=== PATIENT | female | born 1995 | race Caucasian/White ===

== ENCOUNTER 2023-10-20 08:00 | Outpatient (CLI) | payer OTHER ==
[2023-10-20 18:03] LABS: BILIRUBIN,URINE NEGATIVE (NEGATIVE); GLUCOSE, URINE (UA) NEGATIVE (NEGATIVE); KETONES,URINE (UA) NEGATIVE (NEGATIVE); LEUKOCYTE ESTERASE, URINE SMALL (NEGATIVE); NITRITE,URINE NEGATIVE (NEGATIVE); OCCULT BLOOD,URINE NEGATIVE (NEGATIVE); PROTEIN,URINE NEGATIVE (NEGATIVE); UROBILINOGEN,URINE 0.2 (NORMAL) E.U./dL (NORMAL)
[2023-10-20 18:09] LABS: CLARITY,URINE HAZY (CLEAR)
[2023-10-20 18:17] LABS: BACTERIA,URINE Moderate /HPF (None Seen); RBC,URINE 0-5 /HPF (0-5); SQUAMOUS EPITHELIAL CELL,UR MANY Squamous (<= Few)
== END 2023-10-20 23:59 | disposition home or self-care (01) ==
LOC: LAB.WC 08:00
PROVIDERS: ATTEND Nurse Practitioner
DX: Z34.00 Encounter for supervision of normal first pregnancy, unspecified trimester (principal)
CPT/HCPCS: 81001; 87086

== ENCOUNTER 2023-11-03 09:32 | Outpatient (CLI) | payer OTHER ==
[2023-11-03 09:51] LABS: BASOPHILS % (AUTO) 0.5 %; EOSINOPHILS # (AUTO) 0.1 10^3/uL (0.0-0.7); EOSINOPHILS % (AUTO) 1.4 %; HCT - HEMATOCRIT 39.1 % (37.0-47.0); HGB - HEMOGLOBIN 12.8 g/dL (12.0-16.0); LYMPHOCYTES # (AUTO) 1.7 10^3/uL (1.5-3.5); LYMPHOCYTES % (AUTO) 27.1 %; MEAN CORPUSCULAR HEMOGLOBIN 27.3 pg (27.0-31.0); MEAN CORPUSCULAR HGB CONC 32.7 g/dL (32.0-36.0); MEAN CORPUSCULAR VOLUME 83.4 fL (81.0-99.0); MEAN PLATELET VOLUME 9.5 fL (7.9-10.8); MONOCYTES # (AUTO) 0.4 10^3/uL (0.0-1.0); MONOCYTES % (AUTO) 5.8 %; NEUTROPHILS # (AUTO) 4.1 10^3/uL (1.5-6.6); NEUTROPHILS % (AUTO) 65.2 %; PLT - PLATELET COUNT 356 10^3/uL (130-450); RED BLOOD COUNT 4.69 10^6/uL (4.20-5.40); RED CELL DISTRIBUTION WIDTH 13.4 % (12.0-15.0); WHITE BLOOD COUNT 6.2 x10^3/uL (4.8-10.8)
[2023-11-04 04:10] LABS: HBsAG SCREEN Negative (Negative); HIV SCREEN 4TH GENERATION Non Reactive (Non Reactive)
[2023-11-04 07:12] LABS: RPR Non Reactive (Non Reactive)
[2023-11-04 09:11] LABS: VARICELLA-ZOSTER AB IGG 399 index (Immune >165)
[2023-11-06 05:09] LABS: HCV AB Non Reactive (Non Reactive)
== END 2023-11-03 09:33 | disposition home or self-care (01) ==
LOC: LAB 09:32
PROVIDERS: ATTEND Nurse Practitioner
DX: Z34.00 Encounter for supervision of normal first pregnancy, unspecified trimester (principal); Z36.89 Encounter for other specified antenatal screening
CPT/HCPCS: 36415; 85025; 86592; 86762; 86787; 86803; 86850; 86900; 86901; 87340; 87389

== ENCOUNTER 2024-06-02 17:38 | Inpatient (IN) ==
--- NOTE | 2024-06-02 18:31 | HISTORY & PHYSICAL EXAMINATION ---
Admit History Smoking Status: Never smoker Other Maternal History Other Maternal History: HPI: This 28 yo @ 40+5 weeks by LMP and confirmed by 8+1 week ultrasound presents to L&D for scheduled induction of labor. She has not been feeling contractions at home but feeling a significant amount of back pain and pelvis pain and feels her mental health has really struggled each day her induction has been delayed. Her had tried to advocate for her and reached out to other hospitals to see if she could be induced elsewhere. Her Mother is very worried about the wellbeing of baby and is also frustrated by the delays to her elective induction. Merissa, is not necessarily worried, as baby has been active but she very much wishes to proceed with induction as she is in a significant amount of back and hip pain that often brings her to tears. She hasn't felt any real painful contractions, but occasional contractions and doesn't feel that much cervical change has been made since her exam yesterday in clinic (SVE /-3, posterior, medium consistency, vertex). PATTERSON SCORE: 3. Declines repeat exam this evening. She has been consented for induction and understands risks include but are not limited to: section, prolonged labor, vacuum extraction, episotomy, hemorrhage, and the additional risks associated prolonged second stage related to extraction. Reviewed back up OBGYN is available for emergencies and consultations if needed. She has been a patient of [facility] for the duration of her which has remained uncomplicated with the exception of some late first trimester bleeding. ROS: No Headache, visual changes or right upper quadrant abdominal pain. Denies significant N/V. Denies urinary urgency or dysuria. All other symptoms reviewed and were negative except per HPI. In the event of an emergency, accepts the administration of blood products. OB Hx: G1: 05/2022, SAB @ 7 weeks. Miso/mife G2: Current Medical Hx: No significant Surgical Hx: None Social Hx: Monogamous with male partner, Amarjit. 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 Denies current use of alcohol or tobacco, marijuana or other recreational drugs. Reports that she is safe in current relationship. Family Hx: Denies family history of congenital anomalies, Cystic Fibrosis or chromosomal abnormalities Mother's hx positive for Stroke/CVA & Diabetes. Father's history positive for skin cancer, hyperlipidemia LMP: 08/22/2023 NIKIA by LMP: 05/28/2024 US: Bedside US NIKIA 05/31/2024 c/w LMP Final NIKIA: 05/28/2024 Pre- Weight: 220 BMI: 40.75 Blood type: O+ Antibody: Negative CBC: PLT 356 HCT 39.1 HGB 12.8 RUB: Immune VZV: Immune HBsAg: Negative HepC: NR RPR/AB-EIA: NR HIV: NR PAP:2021 GC/CT: Negative HSV: denies Genetic testing: MaterniT- Negative Covid:declines Flu:01/01 FAS: Placenta:anterior w/o previa Cord:3VC ANDRE:11cm wnl EFW: 326g 30th%ile 50gm OGCT: 116 TDAP: 03/15/2024 Breast Pump: 03/15/2024 RPR: NR CBC: PLT 374 HCT 33.8 HGB 10.5 GBS: Negative Delivery plan: Desires epidural , would like to avoid cervical ripening balloon if possible. Okay with all baby meds. Physical exam: Normocephalic, atraumatic No increased work of breathing Abdomen gravid, soft, nontender. EFW 3700 FHR baseline 135, moderate variability, + accelerations, no decelerations Contractions palpate mildly every 3-5 minutes with soft resting tone. Not feeling the contractions SVE 1cm (06/02/2024), vertex, membranes intact Bilateral LE's and bilateral hands 1+ edema Mood is good. Assessment: 28yo @ 40+5 weeks gestation by 8+1 wk U/S Elective IOL @ 40+5 weeks gestation FHR 135 Cat I GBS NEG Plan: Admit to [facility] for preinduction cervical ripening Begin with Misoprostol 50mcg BC q 4 hours, will reconsider CRB after 24 hours if unchanged Continuous monitoring Jacuzzi PRN. Nitrous oxide PRN. Epidural PRN Maternal Request. Anticipate . Meds/Allgy Home Medications Ambulatory Orders Medication Instructions Recorded Confirmed aspirin 81 mg tablet,delayed 81 mg PO QDAY 01/02/24 06/01/24 release (Adult Low Dose Aspirin) vits no.126-ferrous fum tab PO 01/02/24 06/01/24 28 mg iron-folic acid 800 mcg tablet (Classic ) hydroxyzine HCl 50 mg tablet 50 mg PO BID PRN anxiety #90 tabs 04/24/24 06/01/24 metoclopramide HCl 5 mg tablet See Rx Instructions .Route 05/14/24 06/01/24 .COMPLEX #20 tabs Allergies Allergies Allergy/AdvReac Type Severity Reaction Status Date / Time Penicillins Allergy Severe Rash Verified 06/01/24 15:57 amoxicillin Allergy Mild Unknown Verified 06/01/24 15:57 PFSH Active Problems All Active Problems (Updated 04/09/24 @ 12:49 by Octavio Finney MD) Heart palpitations (Acute) Uterine size date discrepancy (Acute) Supervision of normal (Acute) (Acute) Medical History Medical History (Updated 04/09/24 @ 12:49 by Octavio Finney MD) No pertinent past medical history Surgical History Surgical History (Updated 04/09/24 @ 11:58 by Linda Turner RN) No pertinent past surgical history Social History Social History Smoking Status: Never smoker Relationship: Do you feel safe in your home environment?: Yes Suffered physical, verbal, emotional, or financial abuse?: No POLST Patient has POLST: No Plan for Labor Plan For Labor I expect patient to be DC'd or transferred within 96 hours.: Yes
[2024-06-02] MEDS ORDERED: hydrALAZINE INJ 20 MG/ML VIAL IVP PRN ×2 (18:32)
[2024-06-02] MEDS ORDERED: miSOPROStoL 200 MCG TABLET BC PRN (18:32)
[2024-06-02] MEDS ORDERED: OXYTOCIN 10 UNIT/ML VIAL IM PRN (18:32)
[2024-06-02] MEDS ORDERED: CARBOPROST TROMETHAMINE 250 MCG/ML VIAL IM PRN (18:32)
[2024-06-02] MEDS ORDERED: NIFEdipine 10 MG CAPSULE PO PRN (18:32)
[2024-06-02] MEDS ORDERED: LACTATED RINGERS 1,000 ML IV PRN (18:32)
[2024-06-02] MEDS ORDERED: LABETALOL 20 MG/4 ML SYRINGE IVP PRN ×3 (18:32)
[2024-06-02 19:24] LABS: BASOPHILS % (AUTO) 0.4 %; EOSINOPHILS # (AUTO) 0.1 10^3/uL (0.0-0.7); HGB - HEMOGLOBIN 10.2 g/dL (12.0-16.0); LYMPHOCYTES # (AUTO) 1.6 10^3/uL (1.5-3.5); LYMPHOCYTES % (AUTO) 16.3 %; MEAN CORPUSCULAR HEMOGLOBIN 24.1 pg (27.0-31.0); MEAN CORPUSCULAR HGB CONC 30.9 g/dL (32.0-36.0); MEAN CORPUSCULAR VOLUME 77.8 fL (81.0-99.0); MEAN PLATELET VOLUME 10.3 fL (7.9-10.8); MONOCYTES # (AUTO) 0.5 10^3/uL (0.0-1.0); MONOCYTES % (AUTO) 4.8 %; NEUTROPHILS # (AUTO) 7.5 10^3/uL (1.5-6.6); NEUTROPHILS % (AUTO) 76.6 %; PLT - PLATELET COUNT 377 10^3/uL (130-450); RED BLOOD COUNT 4.24 10^6/uL (4.20-5.40); RED CELL DISTRIBUTION WIDTH 16.3 % (12.0-15.0); WHITE BLOOD COUNT 9.8 x10^3/uL (4.8-10.8)
[2024-06-02] MEDS: miSOPROStoL 100 MCG TABLET BC SCH (20:10)
--- NOTE | 2024-06-03 07:41 | PROVIDER PROGRESS NOTE ---
Labor Progress Note Labor Progress Note Labor Progress Note/Additional Text: S: Was able to get some sleep overnight. Had some contractions but felt more like period cramps. Received misoprostol q 4 hours since about 2100 last night. Her is supportive at the bedside. Mood is good. O: FHR 135-140, Category I tracing SVE deferred without active contractions A: 28yo @ 40+6 wks gestation Postdates GBS negative P: continuous monitoring. continue with q4 hour misoprostol for 24 hours. Discussed CRB if not more dialated at that time, patient would desire an alternative but understands it may be the only available next step. Anticipate .
[2024-06-03] MEDS: SODIUM CHLORIDE FLUSH 0.9% 10 ML SYRINGE IVP SCH (10:53)
[2024-06-03] MEDS ORDERED: hydrOXYzine PAMOATE 25 MG CAPSULE PO PRN (10:55)
--- NOTE | 2024-06-03 12:48 | PHARMACY PROGRESS NOTE ---
Best Possible Medication History Admit Date and Time: 06/02/24 1832 Home Medications Medication Instructions Recorded Confirmed Type aspirin 81 mg tablet,delayed 81 mg PO QDAY 01/02/24 06/03/24 History release (Adult Low Dose Aspirin) vits no.126-ferrous fum 1 tab PO DAILY 01/02/24 06/03/24 History 28 mg iron-folic acid 800 mcg tablet (Classic ) hydroxyzine HCl 50 mg tablet 50 mg PO BID PRN anxiety #90 tabs 04/24/24 06/03/24 Rx Processed by: Pharmacy Medications reviewed in ED?: No Medication History completed: No Patient Interview: Completed Secondary Source(s): Insurance records [facility] Statement: Per RN interview and review of [employer] Rx records. As the person ultimately responsible for medication therapy, providers are able to order a medication from an existing home medication list in [facility] via the "Reconcile Routine" prior to Confirmation of that medication by customer support professional. Such practice is discouraged except when the physician, in their clinical judgment, deems that a medical need exists for a medication without regard to previous use.
[2024-06-03] MEDS: ONDANSETRON 4 MG/2 ML VIAL IVP PRN (14:11)
[2024-06-03] MEDS: fentaNYL 100 MCG/2 ML VIAL IVP STA (14:14)
[2024-06-03] MEDS: SODIUM CHLORIDE FLUSH 0.9% 10 ML SYRINGE IVP PRN (14:20)
--- NOTE | 2024-06-03 20:51 | PROVIDER PROGRESS NOTE ---
Labor Progress Note Labor Progress Note Labor Progress Note/Additional Text: Discussed with patient and RN Caro. Primarily category I tracing with intermittent periods of minimal variability associated with likely sleep cycles. #6 dose of misoprostol given. Merissa feels that her cevix may have changed more as she's more uncomfortable. Next huddle [id number]. RN to preform SVE and update provider by phone. Reviewed recommendation if unchanged cervix to proceed with CRB. She declines, does not feel she can tolerate it. She would prefer pitocin. Last SVE 1-2cm/90/-2. We discussed that no matter the assessment, without the option of CRB, the plan of management will likely would not change her plan of care. Reviewed expectations for pitocin management.
[2024-06-04] MEDS: LACTATED RINGERS 1,000 ML IV PRN (00:47)
[2024-06-04] MEDS: OXYTOCIN/SODIUM CHLORIDE 500 ML IV SCH (00:48)
[2024-06-04] MEDS: fentaNYL 100 MCG/2 ML VIAL IVP ONE (03:35)
[2024-06-04] MEDS ORDERED: ROPIVACAINE 0.2% 200 MG/100 ML BAG EP ONE (04:46)
[2024-06-04] MEDS: LACTATED RINGERS 1,000 ML IV SCH (05:00)
[2024-06-04] MEDS ORDERED: ONDANSETRON 4 MG/2 ML VIAL IVP PRN (05:24)
[2024-06-04] MEDS ORDERED: diphenhydrAMINE INJ 50 MG/ML VIAL IVP PRN (05:24)
[2024-06-04] MEDS ORDERED: NALOXONE 0.4 MG/ML VIAL IVP PRN ×2 (05:24→18:28)
[2024-06-04] MEDS ORDERED: ePHEDrine 50 MG/ML VIAL IVP PRN (05:24)
[2024-06-04] MEDS ORDERED: LACTATED RINGERS 500 ML IV ONE (05:24)
[2024-06-04] MEDS ORDERED: NALBUPHINE 10 MG/ML AMP IVP PRN (05:24)
--- NOTE | 2024-06-04 05:26 | ANESTHESIA PROCEDURE NOTE ---
Pre-Anesthesia VS, & Labs Diagnosis Surgical Diagnosis:: term labor pain Procedure Procedure: epidural for Vitals Vital Signs: Temp Pulse Resp BP Pulse Ox 37.2 C 94 18 120/73 99 06/02/24 20:54 06/02/24 20:54 06/02/24 20:54 06/02/24 20:54 06/02/24 20:54 NPO Last Fluid Intake: t/o noc Is Patient ?: Yes Lab Results Current Lab Results: Laboratory Tests 06/02/24 19:49: Blood Type O POSITIVE, Antibody Screen NEGATIVE 06/02/24 18:36: WBC 9.8, RBC 4.24, Hgb 10.2 L, Hct 33.0 L, MCV 77.8 L, MCH 24.1 L, MCHC 30.9 L, RDW 16.3 H, Plt Count 377, MPV 10.3, Neut # (Auto) 7.5 H, Lymph # (Auto) 1.6, Coal # (Auto) 0.5, Eos # (Auto) 0.1, Baso # (Auto) 0.0, Absolute Nucleated RBC 0.00, Nucleated RBC % 0.0 Lab results reviewed: Yes 06/02/24 18:36 Meds/Allgy Home Medications Ambulatory Orders Medication Instructions Recorded Confirmed aspirin 81 mg tablet,delayed 81 mg PO QDAY 01/02/24 06/03/24 release (Adult Low Dose Aspirin) vits no.126-ferrous fum 1 tab PO DAILY 01/02/24 06/03/24 28 mg iron-folic acid 800 mcg tablet (Classic ) hydroxyzine HCl 50 mg tablet 50 mg PO BID PRN anxiety #90 tabs 04/24/24 06/03/24 Allergies Allergies Allergy/AdvReac Type Severity Reaction Status Date / Time Penicillins Allergy Severe Rash Verified 06/01/24 15:57 amoxicillin Allergy Mild Unknown Verified 06/01/24 15:57 PFSH Active Problems All Active Problems (Updated 04/09/24 @ 12:49 by Octavio Finney MD) Heart palpitations (Acute) Uterine size date discrepancy (Acute) Supervision of normal (Acute) (Acute) Medical History Medical History (Updated 04/09/24 @ 12:49 by Octavio Finney MD) No pertinent past medical history Surgical History Surgical History (Updated 04/09/24 @ 11:58 by Linda Turner RN) No pertinent past surgical history Social History Social History Smoking Status: Never smoker Do you dip or chew tobacco?: No Patient requests smoking cessation consult: No Initiate information on smoking cessation: No Relationship: Do you feel safe in your home environment?: Yes Suffered physical, verbal, emotional, or financial abuse?: No POLST Patient has POLST: No Anesthesia Exam (Expanded) Exam General: Alert, Oriented x3, Cooperative and Mild distress Dental: WNL Respiratory: Lungs clear, Normal breath sounds and No respiratory distress Cardiovascular: Regular rate Neurological: Normal speech Mental/Cognitive Status: Alert/Oriented X3 and Normal for patient Cognitive Status: Within normal limits Plan Plan Anesthesia Type: Epidural Consent for Procedure(s) Verified and Reviewed: Yes Code Status: Attempt Resuscitation ASA Classification ASA classification: 2-Mild systemic disease Is this case an emergency?: No
[2024-06-04] MEDS ORDERED: METOCLOPRAMIDE 10 MG/2 ML VIAL IVP PRN (06:52)
[2024-06-04] MEDS: METOCLOPRAMIDE 10 MG/2 ML VIAL IVP PRN (06:58)
--- NOTE | 2024-06-04 07:41 | PROVIDER PROGRESS NOTE ---
Labor Progress Note Labor Progress Note Labor Progress Note/Additional Text: Doing well and very comfortable with epidural. SVE /0. FHR category I. Well supported by and family. Discussed plan of care to continue to increase oxytocin to adequate contraction pattern.
[2024-06-04] MEDS: ROPIVACAINE 0.2% 200 MG/100 ML BAG EP PRN (11:43)
[2024-06-04] MEDS ORDERED: SODIUM CHLORIDE 0.9% 10 ML VIAL ONE (12:36)
[2024-06-04] MEDS ORDERED: fentaNYL 100 MCG/2 ML VIAL ONE (12:36)
[2024-06-04] MEDS ORDERED: LIDOCAINE-PF 2% 10 ML AMP SUBQ ONE (12:36)
--- NOTE | 2024-06-04 13:20 | PROVIDER PROGRESS NOTE ---
Subjective Prog Note Date Prog Note Date: 06/04/24 Prog Note Time: 12:45 Subjective Subjective: Progressing to 9cm. VERY uncomfortable until the epidural bolus became effective. Was Feeling lots of pressure and moaning in pain. Afebrile. tachycardia. Fluid bolus with resolution of FHR 170's to 160s. Reviewed with back up OBGYN. Will let her to progress to complete and labor down. Current Medications Current Medications Current Medications: Current Medications Generic Name Dose Route Start Last Admin Trade Name Freq PRN Reason Stop Dose Admin Acetaminophen 1,000 mg 06/04/24 06:11 Acetaminophen 500 Mg Tablet PO Q8HR PRN Pain or Fever > 38C (100.4F) Carboprost Tromethamine 250 mcg 06/02/24 18:32 Carboprost Tromethamine 250 Mcg/Ml Vial IM 06/07/24 18:32 Q15M PRN Step 4: Hemorrhage protocol Diphenhydramine HCl 12.5 - 25 mg 06/04/24 05:24 Diphenhydramine Inj 50 Mg/Ml Vial IVP Q6HR PRN ITCHING Ephedrine Sulfate 5 mg 06/04/24 05:24 Ephedrine 50 Mg/Ml Vial IVP Q5M PRN For SBP<100;give until SBP>100 Hydralazine HCl 5 - 20 mg 06/02/24 18:32 Hydralazine Inj 20 Mg/Ml Vial IVP Q20M PRN SBP >160 or DBP >110 Protocol Hydralazine HCl 10 mg 06/02/24 18:32 Hydralazine Inj 20 Mg/Ml Vial IVP 06/07/24 18:32 .ONCE PRN Step 9 of Labetalol protocol Protocol Hydroxyzine Pamoate 50 mg 06/03/24 10:55 Hydroxyzine Pamoate 25 Mg Capsule PO BID PRN anxiety Lactated Ringer's 1,000 mls @ 100 mls/hr 06/02/24 18:32 06/04/24 00:47 Lr IV 100 mls/hr .Q10H PRN Administration Save for active labor Oxytocin/Sodium Chloride 500 mls @ 999 mls/hr 06/02/24 18:32 Pitocin/Sodium Chloride IV 06/07/24 18:32 PRN PRN POST- HEMORR PREVENTION Protocol 999 MILLIUNIT/MIN Tranexamic Acid 1,000 mg in 100 mls @ 600 mls/hr 06/02/24 18:32 Tranexamic 1,000 Mg/100ml-Nacl IV 06/07/24 18:32 .ONCE PRN EBL >1200mL and within 3hr Oxytocin/Sodium Chloride 500 mls @ 2 mls/hr 06/04/24 01:00 06/04/24 10:30 Pitocin/Sodium Chloride IV 6 milliunit/min TITR MONET 6 mls/hr Titration Protocol 2 MILLIUNIT/MIN Ropivacaine 200 mg in 100 mls @ 0 mls/hr 06/04/24 05:24 06/04/24 11:43 Naropin 0.2% EP 10 mls/hr PRN PRN Administration PAIN Protocol Per Protocol Lactated Ringer's 1,000 mls @ 125 mls/hr 06/03/24 20:00 06/04/24 10:45 Lr IV Infused .Q8H MONET Infusion Labetalol HCl 20 - 80 mg 06/02/24 18:32 Labetalol 20 Mg/4 Ml Syringe IVP Q10M PRN SBP >160 or DBP >110 Protocol Labetalol HCl 20 mg 06/02/24 18:32 Labetalol 20 Mg/4 Ml Syringe IVP 06/07/24 18:32 .ONCE PRN Step 9 of nifedipine protocol Protocol Labetalol HCl 40 mg 06/02/24 18:32 Labetalol 20 Mg/4 Ml Syringe IVP 06/07/24 18:32 .ONCE PRN Step 9 of hydrALAZine protocol Protocol Lidocaine HCl 20 ml 06/02/24 18:32 Lidocaine 1% 20 Ml Mdv ID 06/07/24 18:32 .ONCE PRN PERINEAL REPAIR Methylergonovine Maleate 0.2 mg 06/02/24 18:32 Methylergonovine 0.2 Mg/Ml Vial IM 06/07/24 18:32 .ONCE PRN Step 2: Hemorrhage protocol Metoclopramide HCl 10 mg 06/04/24 05:24 06/04/24 06:58 Metoclopramide 10 Mg/2 Ml Vial IVP 10 mg Q6HR PRN Administration Nausea / Vomiting Misoprostol 50 mcg 06/02/24 19:30 06/03/24 20:30 Misoprostol 100 Mcg Tablet BC 50 mcg Q4HR MONET Administration Misoprostol 800 mcg 06/02/24 18:32 Misoprostol 200 Mcg Tablet BC 06/07/24 18:32 .ONCE PRN Step 3: Hemorrhage protocol Nalbuphine HCl 2.5 - 5 mg 06/04/24 05:24 Nalbuphine 10 Mg/Ml Amp IVP Q4H PRN ITCHING Naloxone HCl 0.1 mg 06/04/24 05:24 Naloxone 0.4 Mg/Ml Vial IVP Q2M PRN RR<8 Nifedipine 10 - 20 mg 06/02/24 18:32 Nifedipine 10 Mg Capsule PO Q20M PRN SBP >160 or DBP >110 Protocol Ondansetron HCl 4 mg 06/02/24 18:32 06/04/24 04:05 Ondansetron 4 Mg/2 Ml Vial IVP 4 mg Q4HR PRN Administration Nausea / Vomiting Ondansetron HCl 4 mg 06/04/24 05:24 Ondansetron 4 Mg/2 Ml Vial IVP Q6HR PRN Nausea / Vomiting Oxytocin 10 unit 06/02/24 18:32 Oxytocin 10 Unit/Ml Vial IM 06/07/24 18:32 .ONCE PRN Step one: If no IV access Multivit/Folic Acid/Iron 1 tab 06/04/24 08:00 Vitamin Tablet PO DAILYWM MONET Sodium Chloride 10 ml 06/03/24 01:00 06/03/24 13:59 Sodium Chloride Flush 0.9% 10 Ml Syringe IVP Not Given 0100,0900,1700 MONET Sodium Chloride 10 ml 06/02/24 18:32 06/03/24 14:20 Sodium Chloride Flush 0.9% 10 Ml Syringe IVP 10 ml PRN PRN Administration NEEDED PER PROVIDER ORDERS Objective Vital Signs/Intake & Output Vital Signs: Vital Signs x48h BP 06/04/24 05:24 126/84 Intake & Output: Intake & Output 06/01/24 06/02/24 06/03/24 06/04/24 23:59 23:59 23:59 23:59 Intake Total 1078 / 1078 Output Total 325 / 325 Balance 753 / 753 Weight (kg) 233 lb 15.978 oz Lab Results 06/02/24 18:36
--- NOTE | 2024-06-04 13:51 | ANESTHESIA PROCEDURE NOTE ---
Anesthesia Epidural Template Patient Report Patient Reports: positive Inadequate control (Patient report lots of vaginal pressure and pain. ) Exam Epidural Medication Information: Epidural Medications Medication Ropivicaine Continuous Infusion Rate (mL/ 4 hr) Bolus Amount 10 Other Comments Other Comments: T-10 level per nursing, but lots of perineal pressure/pain. Epidural bolused with 5ml of 2%lidocaine, 100mcg fentanyl, and 10ml of PFNS. After bolus, patient reports minimal pain with contractions. Epidural infusion changed to PIEB 10ml q 50 mins, no PCEA.
[2024-06-04] MEDS ORDERED: LIDOCAINE-MPF 1% 5 ML VIAL ONE (16:05)
[2024-06-04] MEDS: lidocaine 1% 20 ML MDV ID PRN (16:20)
[2024-06-04] MEDS: OXYTOCIN/SODIUM CHLORIDE 500 ML IV PRN (16:20)
[2024-06-04] MEDS: TRANEXAMIC ACID IN NACL 1,000 MG/100 ML BAG IV PRN (16:33)
[2024-06-04] MEDS: METHYLERGONOVINE 0.2 MG/ML VIAL IM PRN (16:37)
[2024-06-04] MEDS ORDERED: LABETALOL 5 MG/1 ML 20 ML MDV IVP PRN (18:28)
[2024-06-04] MEDS ORDERED: hydrALAZINE INJ 20 MG/ML VIAL IVP PRN ×2 (18:28)
[2024-06-04] MEDS ORDERED: OXYTOCIN/SODIUM CHLORIDE 500 ML IV PRN (18:28)
[2024-06-04] MEDS ORDERED: LABETALOL 20 MG/4 ML SYRINGE IVP PRN ×2 (18:28)
[2024-06-04] MEDS ORDERED: ACETAMINOPHEN 500 MG TABLET PO PRN (18:28)
[2024-06-04] MEDS ORDERED: NIFEdipine 10 MG CAPSULE PO PRN (18:28)
--- NOTE | 2024-06-04 18:34 | DELIVERY NOTE ---
Delivery Note Delivery Outcome Delivery Date: 06/04/24 Delivery Time: 16:15 Delivery Comments (Free Text/Narrative) Delivery Comments (Free Text/Narrative): This 28-year-old, G 2 P 0 . @ 40+5 weeks gestation by known LMP and confirmed by first trimester ultrasound presented 06/02/2024 @ 1800 for schedule induction of labor. SVE 1/50/-3, posterior, medium consistency, vertex. PATTERSON SCORE: 3. GBS negative. Misprostol x 6 doses, Oxytocin maximum infusion of 12mu/min, although decreased closer to delivery. Throughout labor, FHR pattern demonstrated primarily 155-160 baseline in a category I prior to second stage. Intermittent tachycardia without maternal tachycardia or fever that resolved to baseline. Epidural placed upon maternal request.Baby became persistently tachycardic (180's -190's) during the second stage with ques tionable tracing variable decelerations (vs maternal tracing with push). [facility] back up called to delivery as well as pediatrics. SROM occurred 05/2024 @ approximately 0300. She then progressed to complete/complete 06/04/2024 @ 1430 and second stage began at 1441. : Normal spontaneous vaginal delivery of a viable female on 06/04/2024 @ 1615. Nuchal x 2, tight, delivered through as shoulder and body delivery precipitously followed delivery of head . The was placed on maternal abdomen, stimulated, dried and placed skin to skin. Apgars 7 & 9 @ 1 & 5 minutes. The umbilical cord was allowed to stop pulsating at which time it was doubly clamped by delivering provider and cut by FOB. 3VC. Cord blood was obtained. Fundal massage and gently cord traction applied for active management of the third stage, placenta delivered spontaneously and intact and appeared normal @ 1624. QBL 750cc. Placenta was not sent to pathology. Pitocin administered via IV for hemostasis and allowed to run freely. IM methergine given x1 dose. TXA 1g given x2 doses. Uterine massage was performed until uterus was deemed firm. weight 6# 14.901oz. Inspection of the perineum noted extensive lacerations to labia minora, vaginal vault, periclitoral tissue, and a second degree perineal laceration. Mucosal tissue sheared from muscle and vaginal tissue detached and needing re- appro ximation. Dr. Luis PINTO asked to complete repair. See MD documentation. Upon re-inspection the patient was hemostatic. Uterus again massaged and found to be firm. Needle and sponge counts were correct. Uterine fundus firm and there is no excessive bleeding. Tissues well approximated. Skin to skin initiated. Family bonding well. Both mother and baby are in stable condition.
[2024-06-04] MEDS: IBUPROFEN 600 MG TABLET PO PRN (18:48)
[2024-06-04] MEDS: ACETAMINOPHEN 500 MG TABLET PO PRN (18:49)
--- NOTE | 2024-06-04 21:06 | PROCEDURE REPORT ---
Hospitalist Procedure Note Procedure Note Procedure Note: Called in by ALLYSSA Barrientos to be present for delivery as tachycardia. Delivery was fine but then ob lacerations were extensive and she needed help with repair. I introduced myself to patient and family and gowned up. Perineum and vagina assessed. The perineal laceration was 2nd degree. The vaginal laceration seemed to be that the vaginal skin came off the mucosa and there was some mucosal tearing as well. Most of the right labia minora detached. There was bleeding to the right of the urethra. The patient's labia majora were quite puffy. As I started the repair, she was tender, even though her epidural was redosed right before delivery. Lidocaine 1% injected into perineum and vagina, total 20 cc. Given how raw the tissue was, and how much she was bleeding, TXA was given early on. I also delivered the placenta at about 5 minutes and uterus contracted well. 3-0 Vicryl suture was used to reinforce the perineum over the anal sphincter. There was a arterial bleeder in this area that was tied off. The repair was continued up into the vagina and the skin was brought down over the mucosa and to perineum. Tissue was very raw and it was difficult figure out what went where. And it was bleeding. I did my best to put in back together. The right labia tissue that was just hanging free with removed as it seemed not viable. There was bleeding up near the urethra on the right. urethra was cleaned with betadine and a red rubber catheter was placed. This helped with identifying the urethra as I repaired this area that was bleeding. 3-0 Vicryl Rapide was used. After a few interrupted stitches it stopped bleeding. This suture was then used to repair the right labial area. The remaining small perineal laceration was repaired with this suture in 2 layers. Vagina was checked for sponges and we counted carefully. Rectal exam was done and palpably had good support and no stitches in rectum. QBL about 750 cc. The patient had a skin tag on her right abdomen that I offered to remove while she was sort of numb and she agreed. I prepped with some alcohol swabs, injected with 3 cc of 1% lidocaine, tied around the skin tag with a 3-0 vicryl suture tightly and then cut the skin tag off. It was discarded. Bandage was placed. She tolerated this quite well.
[2024-06-04] MEDS: DOCUSATE SODIUM 100 MG CAPSULE PO SCH (22:32)
[2024-06-05] MEDS: PRENATAL VITAMIN TABLET PO SCH (08:42)
[2024-06-05] MEDS: SIMETHICONE CHEW 80 MG TABLET PO PRN (08:42)
--- NOTE | 2024-06-05 12:52 | PROVIDER PROGRESS NOTE ---
Subjective Prog Note Date Prog Note Date: 06/05/24 Prog Note Time: 07:45 Subjective Pt reports feeling: Improved Subjective: Subjective: Patient reports she is doing well. Comfortable WITHOUT pain management Lochia appropriate. Denies heavy bleeding. Ambulating. Pelvic and abdominal pain well-controlled. Tolerating oral intake. Diet: Regular. Voided several times through the night. Hoping to get up and shower later today Passing flatus. Denies BM. Patient is bonding with baby in room Breast feeding going okay. Struggling some with the size of her breasts and baby falling asleep. Denies feeling lightheaded, dizzy or excessively fatigued. Objective General: Alert, oriented, no apparent distress. Cardiovascular: Trace edema to extremities Lungs: No increased work of breathing. Abdomen: Uterus firm. Below umbilicus. No guarding or rebound tenderness. Extremities: No pain on palpation. Distal pulses intact. Assessment and Plan day 1. 28yo s/p with significant vulvar, periurethral and vaginal lacerations following IOL @ 40+5 weeks gestation PPD #1 doing well. - Routine - Anticipate discharge tomorrow Current Medications Current Medications Current Medications: Current Medications Generic Name Dose Route Start Last Admin Trade Name Freq PRN Reason Stop Dose Admin Acetaminophen 1,000 mg 06/04/24 06:11 06/05/24 11:03 Acetaminophen 500 Mg Tablet PO 1,000 mg Q8HR PRN Administration Pain or Fever > 38C (100.4F) Acetaminophen 1,000 mg 06/04/24 18:28 Acetaminophen 500 Mg Tablet PO Q8HR PRN Mild Pain or Fever>38C(100.4F) Carboprost Tromethamine 250 mcg 06/02/24 18:32 Carboprost Tromethamine 250 Mcg/Ml Vial IM 06/07/24 18:32 Q15M PRN Step 4: Hemorrhage protocol Diphenhydramine HCl 12.5 - 25 mg 06/04/24 05:24 Diphenhydramine Inj 50 Mg/Ml Vial IVP Q6HR PRN ITCHING Docusate Sodium 100 mg 06/04/24 21:00 06/05/24 08:42 Docusate Sodium 100 Mg Capsule PO 100 mg BID MONET Administration Hydralazine HCl 5 - 20 mg 06/02/24 18:32 Hydralazine Inj 20 Mg/Ml Vial IVP Q20M PRN SBP >160 or DBP >110 Protocol Hydralazine HCl 10 mg 06/02/24 18:32 Hydralazine Inj 20 Mg/Ml Vial IVP 06/07/24 18:32 .ONCE PRN Step 9 of Labetalol protocol Protocol Hydralazine HCl 10 mg 06/04/24 18:28 Hydralazine Inj 20 Mg/Ml Vial IVP .ONCE PRN SBP> or= 160 OR DBP> or= 110 Protocol Hydralazine HCl 5 - 10 mg 06/04/24 18:28 Hydralazine Inj 20 Mg/Ml Vial IVP Q20M PRN SBP >=160 and/or DBP >=110 Protocol Hydroxyzine Pamoate 50 mg 06/03/24 10:55 Hydroxyzine Pamoate 25 Mg Capsule PO BID PRN anxiety Lactated Ringer's 1,000 mls @ 100 mls/hr 06/02/24 18:32 06/04/24 00:47 Lr IV 100 mls/hr .Q10H PRN Administration Save for active labor Tranexamic Acid 1,000 mg in 100 mls @ 600 mls/hr 06/02/24 18:32 06/04/24 16:33 Tranexamic 1,000 Mg/100ml-Nacl IV 06/07/24 18:32 600 mls/hr .ONCE PRN Administration EBL >1200mL and within 3hr Lactated Ringer's 1,000 mls @ 125 mls/hr 06/03/24 20:00 06/04/24 10:45 Lr IV Infused .Q8H MONET Infusion Oxytocin/Sodium Chloride 500 mls @ 999 mls/hr 06/04/24 18:28 Pitocin/Sodium Chloride IV PRN PRN POST- HEMORR PREVENTION Protocol 999 MILLIUNIT/MIN Ibuprofen 600 mg 06/04/24 18:28 06/05/24 11:55 Ibuprofen 600 Mg Tablet PO 600 mg Q6HR PRN Administration Moderate Pain (Level 4-6) Labetalol HCl 20 - 80 mg 06/02/24 18:32 Labetalol 20 Mg/4 Ml Syringe IVP Q10M PRN SBP >160 or DBP >110 Protocol Labetalol HCl 20 mg 06/02/24 18:32 Labetalol 20 Mg/4 Ml Syringe IVP 06/07/24 18:32 .ONCE PRN Step 9 of nifedipine protocol Protocol Labetalol HCl 40 mg 06/02/24 18:32 Labetalol 20 Mg/4 Ml Syringe IVP 06/07/24 18:32 .ONCE PRN Step 9 of hydrALAZine protocol Protocol Labetalol HCl 20 - 80 mg 06/04/24 18:28 Labetalol 5 Mg/1 Ml 20 Ml Mdv IVP Q10M PRN SBP> or= 160 OR DBP> or= 110 Protocol Labetalol HCl 20 - 40 mg 06/04/24 18:28 Labetalol 20 Mg/4 Ml Syringe IVP Q10M PRN SBP> or= 160 OR DBP> or= 110 Protocol Labetalol HCl 20 mg 06/04/24 18:28 Labetalol 20 Mg/4 Ml Syringe IVP .ONCE PRN SBP >=160 and/or DBP >=110 Protocol Methylergonovine Maleate 0.2 mg 06/02/24 18:32 06/04/24 16:37 Methylergonovine 0.2 Mg/Ml Vial IM 06/07/24 18:32 0.2 mg .ONCE PRN Administration Step 2: Hemorrhage protocol Metoclopramide HCl 10 mg 06/04/24 05:24 06/04/24 06:58 Metoclopramide 10 Mg/2 Ml Vial IVP 10 mg Q6HR PRN Administration Nausea / Vomiting Naloxone HCl 0.1 mg 06/04/24 05:24 Naloxone 0.4 Mg/Ml Vial IVP Q2M PRN RR<8 Naloxone HCl 0.4 mg 06/04/24 18:28 Naloxone 0.4 Mg/Ml Vial IVP .ONCE PRN Opioid Overdose Nifedipine 10 - 20 mg 06/02/24 18:32 Nifedipine 10 Mg Capsule PO Q20M PRN SBP >160 or DBP >110 Protocol Nifedipine 10 - 20 mg 06/04/24 18:28 Nifedipine 10 Mg Capsule PO Q20M PRN SBP >=160 and/or DBP >=110 Protocol Ondansetron HCl 4 mg 06/02/24 18:32 06/04/24 14:44 Ondansetron 4 Mg/2 Ml Vial IVP 4 mg Q4HR PRN Administration Nausea / Vomiting Ondansetron HCl 4 mg 06/04/24 05:24 Ondansetron 4 Mg/2 Ml Vial IVP Q6HR PRN Nausea / Vomiting Multivit/Folic Acid/Iron 1 tab 06/04/24 08:00 06/05/24 08:42 Vitamin Tablet PO 1 tab DAILYWM MONET Administration Simethicone 80 mg 06/04/24 18:28 06/05/24 08:42 Simethicone Chew 80 Mg Tablet PO 80 mg TID PRN Administration Gas Sodium Chloride 10 ml 06/03/24 01:00 06/03/24 13:59 Sodium Chloride Flush 0.9% 10 Ml Syringe IVP Not Given 0100,0900,1700 MONET Sodium Chloride 10 ml 06/02/24 18:32 06/03/24 14:20 Sodium Chloride Flush 0.9% 10 Ml Syringe IVP 10 ml PRN PRN Administration NEEDED PER PROVIDER ORDERS Objective Vital Signs/Intake & Output Vital Signs: Vital Signs x48h Temp Pulse Resp BP Pulse Ox 06/05/24 10:00 100 16 118/85 99 06/05/24 05:00 36.8 C 86 18 91/55 L 99 Intake & Output: Intake & Output 06/02/24 06/03/24 06/04/24 06/05/24 23:59 23:59 23:59 23:59 Intake Total 1578 / 1578 450 / 450 Output Total 430 / 430 400 / 400 Balance 1148 / 1148 50 / 50 Weight (kg) 233 lb 15.978 oz Lab Results 06/02/24 18:36
[2024-06-06 09:14] VITALS: BP 124/76; TEMP 98.1; O2SAT 98
--- NOTE | 2024-06-06 11:19 | Discharge Summary ---
Discharge Summary HOSPITAL COURSE Hospital Course: Date of Admission: 06/02/2024 Date of Discharge: 06/06/2024 Diagnosis on Admission: 1. 28yo @ 40+5 weeks gestation by 8+1 wk U/S 2. Elective IOL @ 40+5 weeks gestation 3. FHR 135 Cat I 4. GBS NEG Diagnosis on Discharge: 1. 28yo PPD#2 s/p TSVD viable female 2. 3. Normal recovery Brief History: She is a [facility] of [facility] who presented on 06/02/2024 for elective induction of labor. Cervix was 1/50/-3 and vertex with intact membranes. She received 6 doses of BC misoprostol for pre-induciton cervical ripening followed by pitocin for induction of labor. Epidural was placed per maternal request. SROM occurred 06/03/2024 @ 1430 and was noted to be a moderate amount of clear fluid. She spontaneously progressed to deliver a viable female infant on 06/04/2024 @ 1615. Perineum was found to have a 2nd degree laceration which was repaired by insulation extruder operator physician in standard fashion and under sterile conditions. Apgars were 7/9 at 1 and 5 minutes respectively. QBL 750 mL. She has been doing well in her course. She is ambulating and tolerating a regular diet. She is urinating without difficulty and her lochia is normal. Her pain is well controlled with oral medications. She will be discharged home today on day #2 with instructions to continue taking her vitamin while and to continue taking Ibuprofen and Tylenol over the counter as needed for pain management. She intends to follow up with myself at [facility] in 1 week for routine visit or sooner if needed. She has been given precautions to call if she has any worsening fevers, chills, abdominal pain, increased vaginal bleeding or foul smelling vaginal lochia. Physical Exam: Normocephalic, atraumatic. Heart RRR w/o M/G/R, lungs CTAB, abdomen soft and nontender with fundus firm at U, perineum intact, light lochia rubra, bilateral LE's no edema. Mood is good. ALLERGIES Allergies Allergy/AdvReac Type Severity Reaction Status Date / Time Penicillins Allergy Severe Rash Verified 06/01/24 15:57 amoxicillin Allergy Mild Unknown Verified 06/01/24 15:57 MEDICATIONS Ambulatory Orders Medication Instructions Recorded Confirmed vits no.126-ferrous fum 1 tab PO DAILY 01/02/24 06/03/24 28 mg iron-folic acid 800 mcg tablet (Classic ) hydroxyzine HCl 50 mg tablet 50 mg PO BID PRN anxiety #90 tabs 04/24/24 06/03/24 PHYSICAL EXAM AT DISCHARGE Vital Signs: Vital Signs x48h Temp Pulse Resp BP Pulse Ox 06/06/24 09:11 98.1 F 102 H 17 124/76 98 LABS 06/02/24 18:36 Discharge Plan Discharge Patient Disposition: Home, Self Care Prescriptions: Continued Classic 28 mg iron- 800 mcg tablet 1 tab PO DAILY hydroxyzine HCl 50 mg tablet 50 mg PO BID PRN (Reason: anxiety) Qty: 90 3RF Discontinued aspirin [Adult Low Dose Aspirin] 81 mg tablet,delayed release (DR/EC) 81 mg PO QDAY Print Language: Palestinian Patient Instructions: Vaginal After, , Self Care
[2024-06-06] MEDS ORDERED: HYDROCORTISONE 1% CREAM 28 GM TUBE TOP SCH (12:00)
--- NOTE | 2024-06-06 12:42 | Labor Flowsheet ---
Labor Flowsheet Datetime Report Generated by CPN: 06/06/2024 12:42 Datetime: 06/06/2024 08:31 VITAL SIGNS NBP Sys/Magalie/Mean (mmHg): 124 : 76 : 88 Pulse: 102 Datetime: 06/06/2024 07:00 Stage of : Datetime: 06/05/2024 17:34 SpO2 (%): 99 Datetime: 06/04/2024 17:45 PAIN Pain Scale: 2 Pain Presence: Intermittent Pain Type: Cramping Pain Location: Abdomen Datetime: 06/04/2024 17:30 Respirations: 16 Datetime: 06/04/2024 17:13 Anesthesia Comments: Epidural pump off Datetime: 06/04/2024 16:48 Patient Care Comments: Dr. Smith continue with repair Datetime: 06/04/2024 16:29 Medication Comments: 2nd pitocin bolus started Datetime: 06/04/2024 16:14 LaborFlag: Labor Datetime: 06/04/2024 16:11 Frequency (min): 2-3 Quality: Moderate Pattern: Normal: <= 5 Contractions in 10 Minutes ASSESSMENT A Monitor Mode: External US FHR Baseline Rate : 170 FHR Baseline Changes: Tachycardia Accelerations: None Category: Category II Datetime: 06/04/2024 16:00 UTERINE ACTIVITY Monitor Mode: External Resting Tone (Palpate): Relaxed Variability: Moderate 6-25 bpm Decelerations: None Datetime: 06/04/2024 15:55 Communication Comments: Mammography Supervisor called to attend delivery Datetime: 06/04/2024 15:15 Temperature (C): 37.0 Temperature Route: Oral Datetime: 06/04/2024 14:47 Antiemetics/Antacids: Zofran (mg) @ 4 Datetime: 06/04/2024 14:45 Duration (sec): 60-90 Datetime: 06/04/2024 14:31 VAGINAL EXAM Dilatation (cm): 10.0 Effacement (%): 100 Station: 2 Exam by: RN Vilma Datetime: 06/04/2024 14:15 Pitocin Checklist: At Least 1 Acceleration of 15 bpm x 15 Seconds in 30 Minutes or Adequate Variabi lity; No More than 1 Late Deceleration Occurred in Past 30 Minutes; No More than 2 Variable Decelerat ions > 60 Seconds in Duration and decreasing >60 bpm in 30 minutes; No More than 5 Uterine Contractio ns in 10 Minutes for any 20 Minute Interval; Uterus Palpates Soft between Contractions Datetime: 06/04/2024 13:52 Monitor Interventions for UA: Wishek Adjusted Datetime: 06/04/2024 13:37 Patient Position/Activity: Left Lateral Datetime: 06/04/2024 13:00 Pain Relief Measures: Epidural Given; Comfort Measures PATIENT CARE IV/Blood Work: IV Bolus Started Datetime: 06/04/2024 12:24 Anesthesia Level Check: T10- Umbilicus Datetime: 06/04/2024 12:18 Pain Assessment Comments: Pt c/o vaginal pressure and lower back pain Datetime: 06/04/2024 11:00 Vital Sign Comments: Pt uncomfortable and breathing with ctxs Datetime: 06/04/2024 10:31 MEDICATIONS Pitocin (milliunits): Decreased to @ 6 mu Datetime: 06/04/2024 09:12 Vaginal Exam Comments: per Pt request Datetime: 06/04/2024 08:55 Contraction Comments: toco adjusted Datetime: 06/04/2024 06:55 COMMUNICATION Communication: Provider at Bedside Datetime: 06/04/2024 06:30 Comments: with period of moderate Datetime: 06/04/2024 05:32 I/O Interventions: Dean Cath Inserted Datetime: 06/04/2024 05:01 ANESTHESIA Anesthesia Plans: Epidural Epidural Procedure: Test Dose Datetime: 06/04/2024 04:58 PROCEDURE TIME OUT Procedure Verify: Correct Patient Identity; Correct Side and Site are Marked; Accurate Procedure Co nsent Form; Agreement on Procedure to be Done; Correct Patient Position; Relevant Images and Results are Properly Labeled and Displayed; Addressed Need to Administer Antibiotics or Fluids for Irrigation ; Safety Precautions Based on Patient History or Medication Use Epidural Positioning: Sitting Datetime: 06/04/2024 03:06 Membrane Status: Ruptured Membranes Rupture Method: Spontaneous Amniotic Fluid Color: Bloody Amniotic Fluid Amount: Moderate Datetime: 06/03/2024 20:52 MATERNAL ASSESSMENT Level of Consciousness: Alert Headache: Denies Breath Sounds, Left: Clear and Equal Nausea/Vomiting: Denies Datetime: 06/03/2024 20:16 Hygiene: Shower Datetime: 06/03/2024 16:24 Cervical Ripening Agents: Cytotec @ Datetime: 06/03/2024 16:10 Monitor Interventions for FHR: Ultrasound Adjusted Datetime: 06/03/2024 15:56 Pain Coping: Talking Through Contractions Datetime: 06/03/2024 14:15 Cervix, Consistency: Soft Cervix, Position: Anterior Datetime: 06/03/2024 14:13 Analgesics/Sedatives: Fentanyl (mcg) @ 50 Datetime: 06/03/2024 11:30 Actions for Decelerations: Side to Side Datetime: 06/03/2024 09:08 Pain Goal: 5 Comfort Measures: Breathing/Relaxation; Family Support Datetime: 06/02/2024 20:49 Membranes Ruptured Date/Time: 06/04/2024 03:06 Datetime: 06/02/2024 19:40 TEACHING Instructional Method: Verbal; Written; Patient Instructed; Family/Support Person Instructed; Verbal ized Understanding Plan of Care: Plan of Care Discussed Unit Routine: Monitoring; Diet/Nutrition Services; Medications
== END 2024-06-06 12:20 | disposition home or self-care (01) | DRG 807 ==
LOC: WFO 17:38 → FBP 17:42
PROVIDERS: ADMIT Nurse Practitioner; ATTEND Nurse Practitioner